=== PATIENT | female | born 1960 | race Two or more races ===

== ENCOUNTER → 2017-04-12 | Outpatient (REF) | payer BC ==
[~2017-04-12] MED LIST: ACET65TA OR; COZA100T OR; IBUP600T OR; MILKPOW PO; OMEP20TA7 OR; PRIL20CA OR; [UNRECOGNIZED DRUG - OTHER] PO; viactiv PO
[2017-04-12 19:48] LABS: CALCIUM OXALATE CRYSTALS MODERATE
== END ==
LOC: M SMT 16:54
PROVIDERS: ATTEND Urology
DX: N20.0 Calculus of kidney (principal)

== ENCOUNTER → 2017-05-04 | Outpatient (REF) | payer BC | LOC: M SMT 16:57 | PROVIDERS: ATTEND Urology | DX: N20.0 Calculus of kidney (principal) ==

== ENCOUNTER → 2017-06-06 | Outpatient (REF) | payer BC | LOC: M SMT 12:51 | PROVIDERS: ATTEND Urology | DX: N20.0 Calculus of kidney (principal) ==

== ENCOUNTER → 2017-09-28 | Outpatient (CLI) | payer BC ==
--- NOTE | 2017-09-29 02:14 | REP ---
Clinical: Urinary tract calcifications. Technique: Supine views of the abdomen and pelvis. Findings: Evaluation for urinary tract calcifications is limited by technique and overlying bowel gas. Fecal stasis cannot be excluded. Evidence for prior abdominal surgery. Calcifications in the pelvis likely represent phleboliths, urteral stones cannot be excluded. Impression: Limited examination for urinary tract calcifications. Consider noncontrast CT of the abdomen and pelvis for further evaluation. Signed by Wade Pereyra MD 09/29/2017 02:06 A
== END ==
LOC: M SMT 12:52
PROVIDERS: ATTEND Urology
DX: N20.0 Calculus of kidney (principal)

== ENCOUNTER → 2017-09-28 | Outpatient (REF) | payer BC ==
[2017-09-28 19:05] LABS: CALCIUM OXALATE CRYSTALS LARGE
== END ==
LOC: M SMT 17:20
PROVIDERS: ATTEND Nurse Practitioner Family
DX: R31.0 Gross hematuria (principal); Z87.442 Personal history of urinary calculi

== ENCOUNTER → 2017-10-06 | Outpatient (CLI) | payer BC ==
[~2017-10-06] MED LIST changes: -ACET65TA OR; -COZA100T OR; -IBUP600T OR; +ISOVUE-370 76% 100ML VIAL (Q9967) As Ordered; -MILKPOW PO; -OMEP20TA7 OR; -PRIL20CA OR; -[UNRECOGNIZED DRUG - OTHER] PO; -viactiv PO
== END ==
LOC: M RAD 14:28
DX: R31.0 Gross hematuria (principal); N20.0 Calculus of kidney; D18.03 Hemangioma of intra-abdominal structures; K57.90 Diverticulosis of intestine, part unspecified, without perforation or abscess without bleeding
CPT/HCPCS: Q9967

== ENCOUNTER → 2017-10-10 | Outpatient (REF) | payer BC ==
[2017-10-10 18:49] LABS: APPEARANCE, URINE CLOUDY (CLEAR); BACTERIA, URINE AUTO NEGATIVE (NEGATIVE); BILIRUBIN, URINE AUTO NEGATIVE (NEGATIVE); BLOOD, URINE BLOOD 1+ (NEGATIVE); CALCIUM OXALATE CRYSTALS MODERATE; COLOR, URINE YELLOW (YELLOW); GLUCOSE, URINE (UA) AUTO NEGATIVE (NEGATIVE); KETONE, URINE AUTO TRACE mg/dL (NEGATIVE); LEUKOCYTE ESTERASE, URINE AUTO NEGATIVE (NEGATIVE); MUCUS, URINE SMALL (NEGATIVE); NITRITE, URINE AUTO NEGATIVE (NEGATIVE); PROTEIN, URINE AUTO 1+ mg/dL (NEGATIVE); RBC, URINE AUTO 50 /HPF (0-3); SPECIFIC GRAVITY URINE AUTO 1.036 (1.002-1.035); SQUAMOUS EPITHELIAL CELL UR AU 0 /HPF (0-6); WBC, URINE AUTO 1 /HPF (0-3)
== END ==
LOC: M SMT 17:08
DX: Z01.818 Encounter for other preprocedural examination (principal); N20.0 Calculus of kidney
CPT/HCPCS: 81001

== ENCOUNTER → 2017-10-16 | Outpatient (CLI) | payer BC ==
[2017-10-16 16:06] LABS: HEMATOCRIT 42.4 % (36.0-47.0); HEMOGLOBIN 13.6 g/dl (12.0-16.0); MEAN CORPUSCULAR HEMOGLOBIN 29.6 pg (27.0-33.0); MEAN CORPUSCULAR HGB CONC 32.1 g/dl (32.0-36.5); MEAN CORPUSCULAR VOLUME 92.2 fl (80.0-96.0); PLATELET COUNT, AUTOMATED 274 10^3/uL (150-450); RED CELL DISTRIBUTION WIDTH 13.2 % (11.5-14.5); WHITE BLOOD COUNT 6.1 10^3/uL (4.0-10.0)
[2017-10-16 16:17] LABS: INR 0.99; PROTHROMBIN TIME 13.1 SECONDS (12.4-14.5)
[2017-10-16 16:26] LABS: PARTIAL THROMBOPLASTIN TIME 30.9 SECONDS (26.8-37.9)
== END ==
LOC: M SMT 14:28
DX: N20.0 Calculus of kidney (principal)
CPT/HCPCS: 85610

== ENCOUNTER 2017-10-26 07:56 | Day surgery (SDC) | payer BC ==
[2017-10-26] MEDS ORDERED: MIDAZOLAM INJ 2 MG/2 ML VIAL (J2250) As Ordered (09:08)
[2017-10-26] MEDS ORDERED: PROPOFOL 200 MG/20 ML VIAL As Ordered (09:08)
[2017-10-26] MEDS ORDERED: LIDOCAINE 2% INJ 100 MG/5 ML SDV (FOR ANES.) As Ordered (09:08)
[2017-10-26] MEDS ORDERED: fentaNYL 100 MCG/2 ML INJECTION (J3010) As Ordered (09:09)
[2017-10-26] MEDS ORDERED: LR 1,000 ML IV ×2 (09:15→11:45)
[2017-10-26] MEDS ORDERED: ONDANSETRON 4MG/2ML VIAL (J2405) IV (11:45)
[2017-10-26] MEDS ORDERED: fentaNYL 100 MCG/2 ML INJECTION (J3010) IV (11:45)
[2017-10-26] MEDS ORDERED: traMADol 50 MG TAB As Ordered (11:59)
[2017-10-26] MEDS: traMADol 50 MG TAB PO (12:05)
[2017-10-26] MEDS ORDERED: traMADol 50 MG TAB PO (12:15)
== END 2017-10-26 12:10 | disposition home or self-care (01) ==
LOC: M SDC 07:56
DX: N20.0 Calculus of kidney (principal); I10 Essential (primary) hypertension; K80.20 Calculus of gallbladder without cholecystitis without obstruction; G56.23 Lesion of ulnar nerve, bilateral upper limbs; Z88.1 Allergy status to other antibiotic agents; Z88.5 Allergy status to narcotic agent; Z88.6 Allergy status to analgesic agent; Z88.8 Allergy status to other drugs, medicaments and biological substances; Z79.899 Other long term (current) drug therapy; Z98.84 Bariatric surgery status
CPT/HCPCS: 50590

== ENCOUNTER → 2017-11-17 | Outpatient (CLI) | payer BC | LOC: M SMT 08:58 | DX: N20.0 Calculus of kidney (principal) | CPT/HCPCS: 74018 ==

== ENCOUNTER → 2017-11-17 | Outpatient (REF) | payer BC ==
[2017-11-17 13:14] LABS: APPEARANCE, URINE HAZY (CLEAR); BACTERIA, URINE AUTO NEGATIVE (NEGATIVE); BILIRUBIN, URINE AUTO NEGATIVE (NEGATIVE); BLOOD, URINE BLOOD NEGATIVE (NEGATIVE); CALCIUM OXALATE CRYSTALS LARGE; COLOR, URINE YELLOW (YELLOW); GLUCOSE, URINE (UA) AUTO NEGATIVE (NEGATIVE); KETONE, URINE AUTO NEGATIVE (NEGATIVE); LEUKOCYTE ESTERASE, URINE AUTO NEGATIVE (NEGATIVE); NITRITE, URINE AUTO NEGATIVE (NEGATIVE); PROTEIN, URINE AUTO NEGATIVE (NEGATIVE); RBC, URINE AUTO 0 /HPF (0-3); SPECIFIC GRAVITY URINE AUTO 1.019 (1.002-1.035); SQUAMOUS EPITHELIAL CELL UR AU 0 /HPF (0-6); WBC, URINE AUTO 1 /HPF (0-3)
== END ==
LOC: M SMT 12:56
DX: N20.0 Calculus of kidney (principal)
CPT/HCPCS: 81001

== ENCOUNTER → 2018-05-17 | Outpatient (CLI) | payer BC | LOC: M SMT 11:27 | DX: N20.0 Calculus of kidney (principal) ==

== ENCOUNTER → 2018-06-15 | Outpatient (REF) | payer BC ==
[2018-06-15 14:04] LABS: APPEARANCE, URINE HAZY (CLEAR); BACTERIA, URINE AUTO NEGATIVE (NEGATIVE); BILIRUBIN, URINE AUTO NEGATIVE (NEGATIVE); BLOOD, URINE BLOOD 3+ (NEGATIVE); CALCIUM OXALATE CRYSTALS MODERATE; COLOR, URINE YELLOW (YELLOW); GLUCOSE, URINE (UA) AUTO NEGATIVE (NEGATIVE); KETONE, URINE AUTO NEGATIVE (NEGATIVE); LEUKOCYTE ESTERASE, URINE AUTO NEGATIVE (NEGATIVE); MUCUS, URINE SMALL (NEGATIVE); NITRITE, URINE AUTO NEGATIVE (NEGATIVE); PROTEIN, URINE AUTO NEGATIVE (NEGATIVE); RBC, URINE AUTO TNTC /HPF (0-3); SPECIFIC GRAVITY URINE AUTO 1.021 (1.002-1.035); SQUAMOUS EPITHELIAL CELL UR AU 0 /HPF (0-6); UROBILINOGEN, URINE AUTO 0.2 mg/dL (0.0-2.0); WBC, URINE AUTO 11 /HPF (0-3)
== END ==
LOC: M SMT 13:12
DX: Z87.442 Personal history of urinary calculi (principal)
CPT/HCPCS: 81001

== ENCOUNTER → 2018-08-23 | Outpatient (CLI) | payer BC | LOC: M RAD 07:11 | DX: K76.0 Fatty (change of) liver, not elsewhere classified (principal); R94.5 Abnormal results of liver function studies; N28.1 Cyst of kidney, acquired | CPT/HCPCS: 76705 ==

== ENCOUNTER → 2019-06-11 | Outpatient (CLI) | payer BC ==
[~2019-06-11] MED LIST changes: +ACET65TA OR; +COZA100T OR; +FLOM0.4C39 PO; +IBUP600T OR; -ISOVUE-370 76% 100ML VIAL (Q9967) As Ordered; +MILKPOW PO; +OMEP20CA4 PO; +OMEP20TA7 OR; +ONDA4TAB6 PO; +PRIL20CA OR; +[UNRECOGNIZED DRUG - OTHER] PO; +[UNRECOGNIZED DRUG - OTHER] PO; +viactiv PO
--- NOTE | 2019-06-11 15:03 | REP ---
Clinical: Nephrolithiasis. Comparison: 05/17/2018. Findings: No definite urinary tract calcifications are appreciated although small intrarenal calculi may be obscured by overlying bowel gas pattern. Surgical suture material in the left upper quadrant consistent with prior gastric bypass surgery. Bowel gas pattern is nonspecific. Skeletal structures are within normal limits. Calcifications within the right vandana pelvis remains stable and compatible with phleboliths. A relatively new calcifications in the left vandana pelvis measuring total 6 mm are nonspecific and likely represent phleboliths although ureteral calculi cannot be excluded and should be correlated with physical examination and urinalysis. Impression: 1. Limited evaluation for urinary tract calcifications as noted above. 2. Calcifications in the left vandana pelvis representing a change from prior examination and differential diagnosis may include phleboliths as well as ureteral stones. Correlation with urinalysis and physical examination may be warranted. Electronically Signed by Wade Pereyra MD 06/11/2019 02:53 P
== END ==
LOC: M SMT 14:12
PROVIDERS: ATTEND Nurse Practitioner Family
DX: N20.0 Calculus of kidney (principal)

== ENCOUNTER → 2020-03-06 | Outpatient (CLI) | payer BC ==
[~2020-03-06] MED LIST changes: +ISOVUE-370 76% 100ML VIAL As Ordered ONE; +OMEP1CAP73 PO; -OMEP20CA4 PO
--- NOTE | 2020-03-07 10:37 | REP ---
CT ABDOMEN AND PELVIS WITH PRE- AND POSTCONTRAST IMAGING: CT UROGRAPHY. HISTORY: Gross hematuria. Comparison CT study, October 06, 2017. CT CONTRAST DOSE: 100 mL of intravenous Isovue 370. CT FINDINGS: Preliminary digital cable placer radiograph demonstrates surgical clips in the right upper quadrant and right mid abdomen. The bowel gas pattern is normal. The lung bases are clear on axial CT images. In the liver, there is a stable benign hemangioma measuring 2.3 cm in greatest diameter. This is unchanged from the 2017 study. No other focal hepatic lesion is seen. The patient is status post cholecystectomy. The spleen is unremarkable. Gastric bypass sutures are noted in the left upper quadrant. Normal adrenal glands are seen bilaterally. No abnormalities noted in the pancreas. There is a simple cyst in the lower pole of the right kidney which measures 3.1 cm in greatest diameter. This is unchanged from 2017 study. No renal mass lesion is observed. There is a 9 mm calculus in the renal pelvis of the left kidney. There is some mild mural thickening of the urothelial lining of the pelvis but there is no hydronephrosis or obstructive uropathy seen. No ureteral calculus or bladder calculus is observed. Urinary tract is otherwise unremarkable. No filling defect is seen in the collecting system on delayed postcontrast imaging on either side. No evidence of bladder mass is appreciated. No abdominal wall defect is seen. No bony destructive lesion is appreciated. There is left colonic diverticulosis without CT evidence of diverticulitis. 3D surface rendered images show no additional abnormality. IMPRESSION: 1. A 9 mm left renal pelvic stone with mild mural thickening in the renal pelvis on the left but no hydronephrosis. 2. Simple cyst lower pole right kidney. 3. Stable benign hemangioma of the liver. 4. Post-cholecystectomy and gastric bypass surgery. 5. Left colonic diverticulosis without CT evidence of diverticulitis. Electronically Signed by Jai Epperson MD 03/08/2020 07:42 P
== END ==
LOC: M RAD 15:13
PROVIDERS: ATTEND Nurse Practitioner Family
DX: R31.0 Gross hematuria (principal); Z98.84 Bariatric surgery status; N28.1 Cyst of kidney, acquired; N20.0 Calculus of kidney; K57.90 Diverticulosis of intestine, part unspecified, without perforation or abscess without bleeding; Z90.49 Acquired absence of other specified parts of digestive tract; D18.03 Hemangioma of intra-abdominal structures
CPT/HCPCS: 74178; Q9967

== ENCOUNTER → 2020-03-22 | Outpatient (CLI) | payer BC ==
[~2020-03-22] MED LIST changes: +BARI1CAP PO; -ISOVUE-370 76% 100ML VIAL As Ordered ONE; +QC A650T3 PO; +TRAM50TA2 PO
== END ==
LOC: M LABSMTC 10:44
PROVIDERS: ATTEND Anesthesiology
DX: Z03.818 Encounter for observation for suspected exposure to other biological agents ruled out (principal); Z11.59 Encounter for screening for other viral diseases
CPT/HCPCS: C9803; U0003

== ENCOUNTER 2020-03-25 12:10 | Day surgery (SDC) | payer BC ==
[~2020-03-25] VITALS: Ht 165.1 cm; Wt 98.9 kg
[~2020-03-25 12:10] MED LIST changes: +LIDOCAINE 1% MDV 20ML VIAL SQ PRN; +LR 1,000 ML IV ONE; +ceFAZolin SOD 2 GM in IV 1 EA IV ONE
[2020-03-25] MEDS ORDERED: ISOVUE-300 61% 50ML VIAL As Ordered ONE (13:45)
[2020-03-25] MEDS ORDERED: LIDOCAINE 2% 100MG/5ML SDV (FOR ANES.) As Ordered ONE (14:00)
[2020-03-25] MEDS ORDERED: dexameTHASONE 4 MG/ML 1ML VIAL (J1100 PER 1MG) As Ordered ONE (14:00)
[2020-03-25] MEDS ORDERED: fentaNYL 250 MCG/5 ML INJECTION (J3010) As Ordered ONE (14:00)
[2020-03-25] MEDS ORDERED: propofoL 200 MG/20 ML VIAL As Ordered ONE (14:00)
[2020-03-25] MEDS ORDERED: MIDAZOLAM INJ 2MG/2ML VIAL (J2250 PER 1MG) As Ordered ONE (14:00)
[2020-03-25] MEDS ORDERED: ONDANSETRON 4MG/2ML VIAL As Ordered ONE (14:01)
[2020-03-25] MEDS ORDERED: ePHEDrine SULFATE 25 MG/5 ML(5MG/ML) SYRINGE As Ordered ONE (14:39)
[2020-03-25] MEDS ORDERED: oxyBUTYnin 5 MG TAB PO PRN (15:30)
[2020-03-25] MEDS ORDERED: PERCOCET 5MG/325MG TAB PO PRN (15:30)
[2020-03-25] MEDS ORDERED: traMADol 50 MG TAB PO PRN ×2 (15:30→15:45)
--- NOTE | 2020-03-25 15:42 | REP ---
RETROGRADE PYELOGRAM: Two views. HISTORY: Left-sided stent placement. 14 seconds of fluoroscopy time is reported. FINDINGS: A sequence of two last image hold fluoroscopically obtained spot radiographs of the abdomen document left ureteral cannulation, contrast injection, and double pigtail stent placement. There are surgical clips in the right mid abdomen. No laterality markers are visible. Electronically Signed by Jai Epperson MD 03/25/2020 05:19 P
[2020-03-25] MEDS ORDERED: ONDANSETRON 4MG/2ML VIAL IV PRN (16:00)
[2020-03-25] MEDS ORDERED: fentaNYL 100 MCG/2 ML INJECTION (J3010) IV PRN (16:00)
[2020-03-25] MEDS ORDERED: LR 1,000 ML IV SCH (16:00)
[2020-03-25 16:45] VITALS: BP 172/58
--- NOTE | 2020-03-26 14:37 | RO ---
DATE OF PROCEDURE: 03/25/2020 PREPROCEDURE DIAGNOSIS: Left kidney stone. POSTPROCEDURE DIAGNOSIS: Left kidney stone. PROCEDURE: Cystoscopy, left ureteroscopy with laser lithotripsy and basket extraction of stones, left retrograde pyelogram with intraoperative interpretation of images, left ureteral stent placement. SURGEON: Darren Rosado MD [employer]ELOPER: None. ANESTHESIA: General. OPERATIVE INDICATIONS: This is a 59-year-old female who was found to have an obstructing, approximately 6-7 mm stone at her left ureteral pelvic junction. She was brought to the operating room today for treatment. DESCRIPTION OF PROCEDURE: The patient was brought to the operating room and general anesthesia was induced. Prophylactic antibiotics were infused. She was then placed in dorsal lithotomy position and prepped and draped in the usual sterile fashion. A rigid cystoscope was inserted into the urethral meatus and advanced into the bladder. A guidewire was advanced up the left collecting system. I then advanced the ureteral access sheath up the left collecting system. I went up the access sheath with a flexible ureteroscope and within the left renal pelvis the approximately 6-7 mm stone was seen. This stone was then fragmented into smaller pieces using a 272 micron laser fiber. The majority of the stone was dusted so that all the pieces could pass on their own. A few pieces of the stone were grasped with a basket and removed to be sent for analysis. Once satisfied that no large stones remained, a retrograde pyelogram was performed and was notable for mild left hydronephrosis with no extravasation. I then withdrew the ureteroscope along with access sheath and no additional stones were seen within the ureter. I then utilized a wire to advance a 6-Maltese x 22-32 cm JJ ureteral stent into the left collecting system. The wire was removed and there were adequate curls of the stent in the left renal pelvis and in the bladder. The bladder was then emptied of all fluids and this marked the conclusion of the procedure. The patient was then taken out of the dorsal lithotomy position, awakened from anesthesia and transported to the recovery room in stable condition. ESTIMATED BLOOD LOSS: 5 mL. COMPLICATIONS: None. SPECIMENS: Kidney stone fragments. PLAN: The patient will followup in the clinic in a few weeks for stent removal. JOYCE
== END 2020-03-25 16:58 | disposition home or self-care (01) ==
LOC: M SDC 12:10
PROVIDERS: ATTEND Urology
DX: N20.1 Calculus of ureter (principal); D64.9 Anemia, unspecified; K21.9 Gastro-esophageal reflux disease without esophagitis; Z79.899 Other long term (current) drug therapy; Z98.84 Bariatric surgery status; Z88.5 Allergy status to narcotic agent; Z88.1 Allergy status to other antibiotic agents; Z88.8 Allergy status to other drugs, medicaments and biological substances
CPT/HCPCS: 52356; 74420; 82365; 88300; C1769; C2617; J0690; J1100; J2250; J2405; J3010; Q9967

== ENCOUNTER → 2022-08-25 | Outpatient (CLI) | payer BC ==
[~2022-08-25] MED LIST changes: -LIDOCAINE 1% MDV 20ML VIAL SQ PRN; -LR 1,000 ML IV ONE; -ceFAZolin SOD 2 GM in IV 1 EA IV ONE
== END ==
LOC: M SOG 08:34
PROVIDERS: ATTEND Orthopaedic Surgery Hand Surgery
DX: S52.531A Colles' fracture of right radius, initial encounter for closed fracture (principal); W18.30XA Fall on same level, unspecified, initial encounter; Y92.009 Unspecified place in unspecified non-institutional (private) residence as the place of occurrence of the external cause

== ENCOUNTER → 2022-08-30 | Outpatient (CLI) | payer BC | LOC: M SOG 08:05 | PROVIDERS: ATTEND Orthopaedic Surgery Hand Surgery | DX: S52.531A Colles' fracture of right radius, initial encounter for closed fracture (principal); W18.30XA Fall on same level, unspecified, initial encounter; Y92.009 Unspecified place in unspecified non-institutional (private) residence as the place of occurrence of the external cause ==

== ENCOUNTER → 2022-09-15 | Outpatient (CLI) | payer BC | LOC: M SOG 08:00 | PROVIDERS: ATTEND Orthopaedic Surgery Hand Surgery | DX: S52.531D Colles' fracture of right radius, subsequent encounter for closed fracture with routine healing (principal) ==

== ENCOUNTER → 2022-10-17 | Outpatient (CLI) | payer BC | LOC: M SOG 08:16 | PROVIDERS: ATTEND Physician Assistant | DX: S52.531D Colles' fracture of right radius, subsequent encounter for closed fracture with routine healing (principal); M25.531 Pain in right wrist; W18.30XD Fall on same level, unspecified, subsequent encounter ==